=== PATIENT | female | born 1955 | race African-American/Black ===

== ENCOUNTER 2018-06-11 12:22 | Emergency (ER) | payer OTHER, MEDICAID ==
[~2018-06-11] VITALS: Ht 165.1 cm; Wt 68.0 kg
[2018-06-11] MEDS ORDERED: IBUPROFEN 400MG TABLET PO ONE (15:15)
[2018-06-11] MEDS ORDERED: METHOCARBAMOL 500MG TABLET PO ONE (15:15)
[2018-06-11 17:21] VITALS: BP 124/63
== END 2018-06-11 17:21 | disposition home or self-care (01) ==
LOC: ER 12:33
DX: M25.551 Pain in right hip (principal); M25.511 Pain in right shoulder; V43.52XA Car driver injured in collision with other type car in traffic accident, initial encounter; Y93.9 Activity, unspecified; Y92.410 Unspecified street and highway as the place of occurrence of the external cause; F32.9 Major depressive disorder, single episode, unspecified; Z88.0 Allergy status to penicillin
CPT/HCPCS: 73030; 73502; 99283